=== PATIENT | female | born 1955 | race Caucasian/White ===

== ENCOUNTER 2020-08-09 08:00 | Outpatient (CLI) | payer MEDICARE ==
--- NOTE | 2020-08-09 17:20 | XRAY Report ---
PROCEDURE: Chest 2 View X-Ray INDICATIONS: EXERTIONAL SHORTNESS OF BREATH TECHNIQUE: 2 view(s) of the chest. COMPARISON: None. FINDINGS: Surgical changes and devices: None. Lungs and pleura: No pleural effusions or pneumothorax. Lungs are clear. Mediastinum: Mediastinal contours are normal. Heart size is normal. Bones and chest wall: No suspicious bony abnormalities. Soft tissues appear unremarkable. IMPRESSION: Normal for age, source of current symptoms is not seen. Reviewed by: Ricardo Wade MD on 08/09/2020 5:18 PM PDT Approved by: Ricardo Wade MD on 08/09/2020 5:18 PM PDT Station ID: [id number]
== END 2020-08-09 23:59 | disposition home or self-care (01) ==
LOC: DI.S 08:00
PROVIDERS: ATTEND Physician Assistant Medical
DX: R06.09 Other forms of dyspnea (principal); R07.9 Chest pain, unspecified